=== PATIENT | female | born 2005 | race African-American/Black ===

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

== ENCOUNTER 2023-01-04 11:14 | Emergency (ER) | payer SELFPAY ==
[~2023-01-04] VITALS: Wt 76.2 kg
[~2023-01-04 11:14] MED LIST changes: +OMEPRAZOLE20 M2 PO
== END 2023-01-04 12:38 | disposition home or self-care (01) ==
LOC: ED 11:14
DX: J06.9 Acute upper respiratory infection, unspecified (principal); Z20.822 Contact with and (suspected) exposure to COVID-19

== ENCOUNTER 2024-10-26 23:15 | Emergency (ER) | payer SELFPAY ==
[~2024-10-26] VITALS: Ht 157.4 cm; Wt 65.8 kg
[2024-10-26] MEDS ORDERED: Ondansetron Hydrochloride 4 MG/2 ML VIAL IV ONE (23:20)
[2024-10-26] MEDS ORDERED: SODIUM CHLORIDE 0.9% 1,000 ML IV ONE (23:20)
[2024-10-26 23:37] LABS: BASO % 0.3 % (0.0-1.0); HEMATOCRIT 40.3 % (37.0-47.0); MEAN CELL VOLUME 89.2 fl (81.0-99.0); MEAN CORPUSCULAR HGB CONC 34.7 g/dl (33.0-37.0); MEAN PLATELET VOLUME 9.1 fl (9.6-12.3); MONO # 1.1 10*3/uL (0.1-1.0); MONO % 8.3 % (3.0-9.0); NEUT # 11.2 10*3/uL (2.3-7.9); NEUT % 81.9 % (47.0-73.0); PLATELET COUNT AUTOMATED 351 10*3/uL (130-400); RED BLOOD COUNT 4.52 10*6/uL (4.10-5.10); RED CELL DISTRI WIDTH 12.3 % (0-14.5); WHITE BLOOD COUNT 13.7 10*3/uL (4.8-10.8)
[2024-10-27 00:01] LABS: ALKALINE PHOSPHATASE 53 U/L (46-116); BUN 8 mg/dl (9-23); CHLORIDE 105 mmol/L (98-107); LIPASE 27 U/L (12-53); POTASSIUM 3.3 mmol/L (3.4-5.1); SGPT/ALT 25 U/L (5-49); TOTAL PROTEIN 7.3 gm/dL (6.0-8.0)
[2024-10-27] MEDS ORDERED: Dicyclomine Hydrochloride 20 MG/10 ML OSYR PO STA (00:34)
[2024-10-27] MEDS ORDERED: MG-AL HYDROXIDE/SIMETICONE 30 ML UDC PO STA (00:34)
[2024-10-27] MEDS ORDERED: Lidocaine Hydrochloride 15 ML UDC PO STA (00:34)
[2024-10-27] MEDS ORDERED: Ondansetron4 MG PO (00:55)
== END 2024-10-27 01:13 | disposition home or self-care (01) ==
LOC: ED 23:15
PROVIDERS: Internal Medicine
DX: R11.2 Nausea with vomiting, unspecified (principal); E87.6 Hypokalemia; D72.829 Elevated white blood cell count, unspecified

== ENCOUNTER 2025-03-27 19:26 | Emergency (ER) | payer SELFPAY ==
[~2025-03-27] VITALS: Ht 154.9 cm; Wt 61.2 kg
[~2025-03-27 19:26] MED LIST changes: +Ondansetron4 MG PO
[2025-03-27] MEDS ORDERED: CEPHALEXIN500 M1 PO (20:48)
[2025-03-27] MEDS ORDERED: Tdap Vaccine 0.5 ML SYR (Adult Vaccine) IM ONE (20:50)
[2025-03-27] MEDS ORDERED: Bacitracin Zinc 14 GM TUBE T ONE (20:50)
[2025-03-27] MEDS ORDERED: CEPHALEXIN 500 MG CAP PO ONE (20:50)
== END 2025-03-27 21:14 | disposition home or self-care (01) ==
LOC: ED 19:26
DX: S61.012A Laceration without foreign body of left thumb without damage to nail, initial encounter (principal); Z79.899 Other long term (current) drug therapy; W26.8XXA Contact with other sharp object(s), not elsewhere classified, initial encounter; Y93.89 Activity, other specified; Y92.89 Other specified places as the place of occurrence of the external cause; Y99.8 Other external cause status

== ENCOUNTER 2025-09-02 02:00 | Emergency (ER) | payer SELFPAY ==
[~2025-09-02] VITALS: Ht 167.6 cm; Wt 68.0 kg
[~2025-09-02 02:00] MED LIST changes: +CEPHALEXIN500 M1 PO
[2025-09-02] MEDS ORDERED: CEPHALEXIN 500 MG CAP PO ONE (02:30)
[2025-09-02] MEDS ORDERED: CEPHALEXIN500 M1 PO (02:36)
== END 2025-09-02 02:51 | disposition home or self-care (01) ==
LOC: ED 02:00
DX: S80.852A Superficial foreign body, left lower leg, initial encounter (principal); W27.3XXA Contact with needle (sewing), initial encounter; Y93.89 Activity, other specified; Y92.89 Other specified places as the place of occurrence of the external cause; Y99.8 Other external cause status

== ENCOUNTER 2025-09-07 18:33 | Emergency (ER) | payer SELFPAY ==
[~2025-09-07] VITALS: Ht 157.4 cm; Wt 68.0 kg
== END 2025-09-07 18:52 | disposition home or self-care (01) ==
LOC: ED 18:33
DX: S81.812D Laceration without foreign body, left lower leg, subsequent encounter (principal); Z87.440 Personal history of urinary (tract) infections; X58.XXXD Exposure to other specified factors, subsequent encounter

== ENCOUNTER 2025-09-10 17:25 | Emergency (ER) | payer SELFPAY ==
[~2025-09-10] VITALS: Ht 157.4 cm; Wt 68.0 kg
== END 2025-09-10 18:28 | disposition left against medical advice (07) ==
LOC: ED 17:25
DX: S81.832A Puncture wound without foreign body, left lower leg, initial encounter (principal); Z53.21 Procedure and treatment not carried out due to patient leaving prior to being seen by health care provider; X58.XXXA Exposure to other specified factors, initial encounter; Y93.89 Activity, other specified; Y92.89 Other specified places as the place of occurrence of the external cause; Y99.8 Other external cause status